=== PATIENT | female | born 1990 | race Caucasian/White ===

== ENCOUNTER 2023-03-21 21:27 | Emergency (ER) | payer OTHER ==
[~2023-03-21] VITALS: Ht 154.9 cm; Wt 56.2 kg
[2023-03-21] MEDS ORDERED: SEROQUEL200 MG PO (22:08)
[2023-03-21] MEDS ORDERED: METHADONE HYDRO40 M1 PO (22:09)
[2023-03-22] MEDS ORDERED: SEPTDS PO (00:12)
== END 2023-03-22 00:16 | disposition home or self-care (01) ==
LOC: ED 21:27
DX: L03.011 Cellulitis of right finger (principal); Z91.040 Latex allergy status; F19.10 Other psychoactive substance abuse, uncomplicated